=== PATIENT | male | born 1985 | race Caucasian/White ===

== ENCOUNTER 2021-03-24 21:41 | Emergency (ER) | payer SELFPAY ==
[~2021-03-24] VITALS: Ht 175.3 cm; Wt 10.9 kg
[~2021-03-24 21:41] MED LIST: CLON-527 PO; CLON2TAB PO; HYDR-4353 PO
[2021-03-24 22:15] VITALS: BP 129/91
[2021-03-25] MEDS ORDERED: PRED20TA PO (00:49)
[2021-03-25] MEDS ORDERED: CLIN-97 PO (00:49)
== END 2021-03-25 01:05 | disposition home or self-care (01) ==
LOC: ER 21:42
DX: S80.869A Insect bite (nonvenomous), unspecified lower leg, initial encounter (principal); G89.29 Other chronic pain; F41.9 Anxiety disorder, unspecified; M54.9 Dorsalgia, unspecified; F17.210 Nicotine dependence, cigarettes, uncomplicated; F12.10 Cannabis abuse, uncomplicated; Z79.899 Other long term (current) drug therapy; W57.XXXA Bitten or stung by nonvenomous insect and other nonvenomous arthropods, initial encounter; Y93.89 Activity, other specified; Y92.89 Other specified places as the place of occurrence of the external cause; Y99.8 Other external cause status
CPT/HCPCS: 99283